=== PATIENT | female | born 1935 | race Caucasian/White ===

== ENCOUNTER 2020-09-22 13:13 | Emergency (ER) | payer MEDICARE ==
[~2020-09-22] VITALS: Ht 157.5 cm; Wt 65.8 kg
[~2020-09-22 13:13] MED LIST: AMLO10TA PO; FURO-570 PO; GLIP10TA12 PO; GLU500 PO; METO25TE2 PO; OLME40TA11 PO; POTA8TER12 PO
[2020-09-22 13:23] VITALS: BP 137/54
--- NOTE | 2020-09-22 13:29 | NUR ---
85YO F C/O LEFT FLANK PAIN X 1 WEEK. DENIES ANY RECENT TRAUMA OR INJURY TO AREA. DENIES URINARY SYMPTOMS. IN ED, VSS. PT ON WHEELCHAIR, UNABLE TO AMBULATE D/T PAIN. PT WAITING IN LOBBY TO BE SEEN. ERMD MADE AWARE OF PT STATUS. PMH: DM MEDS: METFORMIN, GLIPLIZIDE ALLERGY: CODEINE
--- NOTE | 2020-09-22 13:58 | NUR ---
PT WHEELED TO CT AT THIS TIME
--- NOTE | 2020-09-22 14:00 | NUR ---
PT REFUSED CT
[2020-09-22] MEDS ORDERED: fentaNYL citrate 0.05 MG/ML VIAL IM ONE (14:30)
[2020-09-22] MEDS ORDERED: KETOROLAC 60 MG/2 ML VIAL IM ONE (14:30)
[2020-09-22 15:00] VITALS: BP 137/54
--- NOTE | 2020-09-22 15:00 | NUR ---
Patient discharged with v/s stable. Written and verbal after care instructions about back pain given and explained. Patient alert, oriented and verbalized understanding of instructions. Ambulatory with steady gait. All questions addressed prior to discharge. ID band removed. Patient advised to follow up with PMD. Rx of tramadol given. Patient educated on indication of medication including possible reaction and side effects. Opportunity to ask questions provided and answered.
== END 2020-09-22 15:00 | disposition home or self-care (01) ==
LOC: MED 13:13
DX: G89.29 Other chronic pain (principal); M54.5 Low back pain; J45.909 Unspecified asthma, uncomplicated; E11.9 Type 2 diabetes mellitus without complications; I10 Essential (primary) hypertension; Z88.5 Allergy status to narcotic agent; Z79.899 Other long term (current) drug therapy
CPT/HCPCS: 96372; 99284; J1885; J3010

== ENCOUNTER 2020-10-02 13:35 | Emergency (ER) | payer MEDICARE ==
[~2020-10-02] VITALS: Ht 157.5 cm; Wt 65.8 kg
[2020-10-02 13:44] VITALS: BP 128/32
[2020-10-02] MEDS ORDERED: KETOROLAC 60 MG/2 ML VIAL IM ONE (14:10)
[2020-10-02 15:05] VITALS: BP 128/32
== END 2020-10-02 15:06 | disposition home or self-care (01) ==
LOC: MED 13:35
DX: M54.5 Low back pain (principal); J45.909 Unspecified asthma, uncomplicated; E11.9 Type 2 diabetes mellitus without complications; I10 Essential (primary) hypertension; Z90.49 Acquired absence of other specified parts of digestive tract; Z88.5 Allergy status to narcotic agent; Z79.899 Other long term (current) drug therapy
CPT/HCPCS: 96372; 99283; J1885

== ENCOUNTER 2020-10-14 14:17 | Emergency (ER) | payer MEDICARE ==
[~2020-10-14] VITALS: Ht 157.5 cm; Wt 65.8 kg
--- NOTE | 2020-10-14 14:20 | NUR ---
Patient w/c assisted to bed 7
[2020-10-14 14:22] VITALS: BP 134/57
--- NOTE | 2020-10-14 14:22 | NUR ---
RN at pt bedside for evaluation.
--- NOTE | 2020-10-14 14:23 | NUR ---
85 Y/O FEMALE BIB DAUGHTER C/O LOWER BACK PAIN (L BUTTOCK) THAT RADIATES DOWN TO L ANKLE X2 WEEKS. PT WAS SEEN HERE X2 WEEKS AGO AND NO RELIEF WITH PAIN MEDS GIVEN AND DID NOT FOLLOW UP WITH PCP. PT RATES PAIN >10/10 THAT IS SHARP, CONTINUOUS AND RADIATES DOWN TO LEFT ANKLE. PT DENIES TRAUMA AND TAKING ANYTHING FOR PAIN TODAY. PT DENIES N/V/SOB. PT IS A&O X4 WITH EVEN AND UNLABORED RESPIRATIONS. PT IS SITTING IN WHEELCHAIR NEXT TO BED. PT STATES THAT SHE HAD MUSCLE SPASMS IN R LEG IN 2018 THAT FEELS SIMILAR TO THIS. PMH: DM, HTN, ASMTHA ALLERIGIES: ISMAEL
--- NOTE | 2020-10-14 16:19 | NUR ---
DR SWEET AT PT BEDSIDE FOR FURTHER EVALUATION
[2020-10-14] MEDS ORDERED: CYCLOBENZAPRINE 10 MG TAB PO ONE (16:35)
[2020-10-14] MEDS ORDERED: KETOROLAC 30 MG/ML VIAL IM ONE (16:35)
[2020-10-14] MEDS ORDERED: CRUSHER, PILL MC ONE (16:43)
--- NOTE | 2020-10-14 16:45 | NUR ---
called pharmacy for lidocaine patch. will bring
--- NOTE | 2020-10-14 16:53 | NUR ---
sleep lab technologist at pt bedside
[2020-10-14 17:01] LABS: BASOPHILS # (AUTO) 0.1 K/uL (0.00-0.22); BASOPHILS % (AUTO) 0.6 % (0.0-2.0); EOSINOPHILS # (AUTO) 0.3 K/uL (0-0.4); EOSINOPHILS % (AUTO) 2.1 % (0.0-4.0); HEMATOCRIT 33.9 % (36-48); HEMOGLOBIN 11.4 g/dL (12.0-16.0); LYMPHOCYTES # (AUTO) 3.5 K/uL (2.5-16.5); LYMPHOCYTES % (AUTO) 28.8 % (20.5-51.1); MEAN CORPUSCULAR HEMOGLOBIN 30 pg (27-31); MEAN CORPUSCULAR HGB CONC 34 g/dL (33-37); MEAN CORPUSCULAR VOLUME 89.8 fL (80-94); MONOCYTES # (AUTO) 0.7 K/uL (0.8-1.0); NEUTROPHILS # (AUTO) 7.5 K/uL (1.8-7.7); NEUTROPHILS % (AUTO) 62.5 % (42.2-75.2); PLATELET COUNT (AUTO) 303 K/uL (140-450); RED BLOOD CELL COUNT(AUTO) 3.77 MIL/uL (4.20-5.40); RED CELL DISTRIBUTION WIDTH 13.2 % (11.6-13.7); WHITE BLOOD COUNT (AUTO) 12.1 K/uL (4.8-10.8)
[2020-10-14 17:20] LABS: ANION GAP 13.8 (8-16); CHLORIDE 104 mmol/L (98-107); CREATININE 1.1 mg/dL (0.6-1.3); GLUCOSE 228 mg/dL (74-106); POTASSIUM 4.8 mmol/L (3.5-5.1); SODIUM SERUM 139 mmol/L (136-145); UREA NITROGEN, BLOOD 23 mg/dL (7-18)
--- NOTE | 2020-10-14 17:21 | NUR ---
pt taken to ct via w/c
--- NOTE | 2020-10-14 17:42 | NUR ---
PT BACK FROM CT. PT SITTING IN W/C AT BEDSIDE.
--- NOTE | 2020-10-14 18:20 | NUR ---
PHARMACY NEVER DELIVERED LIDOCAINE PATCH. DR MADE AWARE, PER DR SWEET, DO NOT ADMINISTER. PT ABOUT TO BE D/C.
--- NOTE | 2020-10-14 19:14 | NUR ---
GAVE REPORT TO ISA THOMPSON. TRANSFER OF CARE AT THIS TIME.
--- NOTE | 2020-10-14 19:17 | NUR ---
RECEIVED TRANSFER OF CARE REPORT FROM TESFAYE THOMPSON FOR CONTINUATION OF CARE.
--- NOTE | 2020-10-14 19:18 | NUR ---
PT WAS FOUND AWAKE SITTING IN A WHEELCHAIR. PT STATES NO MEDICAL COMPLAINTS. PT HAS VISIBLE EQUAL RISE AND FALL UPON RESPIRATIONS.
[2020-10-14 19:47] VITALS: BP 160/69
--- NOTE | 2020-10-14 19:47 | NUR ---
Patient discharged with v/s stable. Written and verbal after care instructions given and explained. Patient verbalized understanding. Wheel Chair Assisted with to car. All questions addressed prior to discharge. Advised to follow up with PMD.
[2020-10-15] MEDS ORDERED: LIDOCAINE 5% 1 EA PATCH TP SCH (09:00)
== END 2020-10-14 19:47 | disposition home or self-care (01) ==
LOC: MED 14:17
DX: M54.16 Radiculopathy, lumbar region (principal); J45.909 Unspecified asthma, uncomplicated; E11.9 Type 2 diabetes mellitus without complications; I10 Essential (primary) hypertension; Z79.84 Long term (current) use of oral hypoglycemic drugs; Z79.899 Other long term (current) drug therapy; Z88.5 Allergy status to narcotic agent
CPT/HCPCS: 36415; 72100; 73502; 80048; 85025; 96372; 99284; J1885

== ENCOUNTER 2020-11-02 12:23 | Emergency (ER) | payer MEDICARE ==
[~2020-11-02] VITALS: Ht 157.5 cm; Wt 65.8 kg
[2020-11-02 12:36] VITALS: BP 116/72
[2020-11-02] MEDS ORDERED: KETOROLAC 30 MG/ML VIAL IM ONE (13:10)
[2020-11-02] MEDS ORDERED: NAPR-54 PO ×2 (13:18→13:25)
[2020-11-02] MEDS ORDERED: LID5T TP ×2 (13:18→13:27)
[2020-11-02] MEDS ORDERED: METH750T5 PO (13:18)
[2020-11-02] MEDS ORDERED: METH-1681 PO (13:28)
[2020-11-02 13:49] VITALS: BP 116/72
== END 2020-11-02 13:49 | disposition home or self-care (01) ==
LOC: MED 12:23
DX: M54.32 Sciatica, left side (principal); J45.909 Unspecified asthma, uncomplicated; E11.9 Type 2 diabetes mellitus without complications; I10 Essential (primary) hypertension; Z88.5 Allergy status to narcotic agent; Z79.899 Other long term (current) drug therapy
CPT/HCPCS: 96372; 99283; J1885

== ENCOUNTER 2021-01-08 10:35 | Emergency (ER) | payer MEDICARE ==
[~2021-01-08] VITALS: Ht 157.5 cm; Wt 65.8 kg
[~2021-01-08 10:35] MED LIST changes: +LID5T TP; +METH-1681 PO; +METH750T5 PO; +NAPR-54 PO
[2021-01-08 10:38] VITALS: BP 130/57
--- NOTE | 2021-01-08 10:50 | NUR ---
Patient w/c assisted to bed 1
[2021-01-08] MEDS ORDERED: MORPHINE SULFATE 2 MG/ML SYR IM ONE (11:00)
[2021-01-08] MEDS ORDERED: ONDANSETRON 4 MG ODT PO ONE (11:00)
[2021-01-08] MEDS ORDERED: DEXAMETHASONE 10 MG/ML VIAL IM ONE (11:00)
--- NOTE | 2021-01-08 11:00 | NUR ---
85/F presents to ED with C/O of sharp 10/10 left lower back pain radiating to her left hip and left leg x4 months. Patient states she has chronic arthritis and the pain has been worsening. Patient states she is usually able to ambulate with the assistance of a walker but recently has only felt comfort when sitting. Patient denies any trauma or recent falls, area is not tender to touch. Patient denies abnormal weakness or numbness. Patient states she has been taking Tylenol at home for the pain with no relief, states she recently saw her primary doctor who referred her to a specialist to be seen on the 15 of January.
--- NOTE | 2021-01-08 11:54 | NUR ---
Patient discharged with v/s stable. Written and verbal after care instructions given and explained. Patient verbalized understanding. Wheel chair assisted to car with daughter present. All questions addressed prior to discharge. Advised to follow up with PMD.
[2021-01-08 12:02] VITALS: BP 130/57
== END 2021-01-08 11:54 | disposition home or self-care (01) ==
LOC: MED 10:35
DX: M51.36 Other intervertebral disc degeneration, lumbar region (principal); M16.12 Unilateral primary osteoarthritis, left hip; J45.909 Unspecified asthma, uncomplicated; I10 Essential (primary) hypertension; E11.9 Type 2 diabetes mellitus without complications; Z88.5 Allergy status to narcotic agent; Z79.899 Other long term (current) drug therapy
CPT/HCPCS: 96372; 99284; J1100; J2270; Q0162

== ENCOUNTER 2021-02-01 13:28 | Emergency (ER) | payer MEDICARE ==
[~2021-02-01] VITALS: Ht 157.5 cm; Wt 65.8 kg
[2021-02-01 13:36] VITALS: BP 100/52
[2021-02-01] MEDS ORDERED: KETOROLAC 60 MG/2 ML VIAL IM ONE (15:10)
[2021-02-01] MEDS ORDERED: ACETAMINOPHEN EXTRA STRENGTH 500 MG TAB PO ONE (15:10)
[2021-02-01] MEDS ORDERED: CYCL-711 PO (15:13)
[2021-02-01] MEDS ORDERED: ACET-10509 PO (15:13)
[2021-02-01 15:55] VITALS: BP 98/49
== END 2021-02-01 15:45 | disposition home or self-care (01) ==
LOC: MED 13:28
DX: M54.5 Low back pain (principal); J45.909 Unspecified asthma, uncomplicated; E11.9 Type 2 diabetes mellitus without complications; I10 Essential (primary) hypertension; Z79.84 Long term (current) use of oral hypoglycemic drugs; Z79.899 Other long term (current) drug therapy; Z88.5 Allergy status to narcotic agent
CPT/HCPCS: 96372; 99283; J1885